=== PATIENT | female | born 1950 | race Caucasian/White ===

== ENCOUNTER 2023-07-19 08:17 | Outpatient (RCR) | payer MEDICARE, BC, SELFPAY | END 2023-07-19 23:59 | disposition home or self-care (01) | LOC: CRHB 08:17 | PROVIDERS: ATTENDING PHYSICIAN Nuclear Medicine Nuclear Cardiology | DX: I25.10 Atherosclerotic heart disease of native coronary artery without angina pectoris (principal); Z95.1 Presence of aortocoronary bypass graft | CPT/HCPCS: G0422; G0423 ==

== ENCOUNTER 2023-08-07 09:44 | Emergency (ER) | payer MEDICARE, BC, SELFPAY ==
[2023-08-07 09:55] VITALS: BP 160/78
--- NOTE | 2023-08-07 10:26 | ED.GENMED ---
History of Present Illness
General
Chief Complaint: Chest Pain
Time Seen by Provider: 08/07/23 10:07
Travel History
Have you had any contact with someone who has COVID-19?: No
Do you have any symptoms of coronavirus? Fever > 100 degrees, chills, cough, shortness of breath, sore throat, loss of taste or smell, muscle aches, or headache?: No
History of Present Illness
History of Present Illness:
73-year-old female with history of hypertension, coronary artery disease status post CABG x 4 presents to the emergency department for evaluation of right upper chest wall pain ongoing since last week. Pain was initially random but has been more
consistent over the course of today. Pain is not pleuritic and not worse with exertion. Does not feel comparable to prior angina. No associated fevers but does report occasional chills and some sensation of shortness of breath. Has been in
cardiac rehab for the past 2 to 3 weeks and feels the process is going well. Denies any nausea, vomiting, or leg swelling.
Past History
Past History
ED Past Medical History: HTN
ED Past Surgical History: None
Social History
Tobacco: Non-smoker
Living: with family
Review of Systems
Review of Systems
Allergies reviewed?: Yes
All Other Systems: ROS reviewed and negative except as documented in HPI and ROS
Phy Exam
Physical Exam
Physical Exam:
GEN: Well appearing, NAD, WDWN
Eyes: PERRLA, EOMs intact, no scleral icterus
HENT: NCAT, oral mucosa moist
Lungs: CTAB, no wheezes, rales, rhonchi, normal chest wall excursion
Chest: Midline sternotomy incision is well-healed. Patient has focal tenderness to the right upper chest wall superior and lateral to the incision site. No erythema or palpable abnormalities
Cardiac: RRR, no M/R/G, no peripheral edema. Radial pulses 2+ bilat
Neuro: AO x 3
MSK: No gross deformity or ecchymosis.
Skin: No rashes, petechiae. Normal color, no pallor or jaundice.
Psych: Calm, cooperative, proper hygiene
Scores
Heart Score for Chest Pain Patients
STEMI patient?: No
History: Slightly or Non-Suspicious
ECG: Normal
Age: >/= 65 years
Risk Factors: >/= 3 Risk Factors or History of CAD
Troponin: </= Normal Limit
Heart Score for Chest Pain Patients: 4
Heart Score Risk: 20.3% MACE over next 6 weeks
Course
Orders/Labs/Results
Orders:
Orders
08/07/23 09:48
Electrocardiogram (*1) Urgent
Reason for Study: Chest Pain
EKG- Treatment ONCE
08/07/23 10:26
CR Chest - 2 Views Urgent
Comment:
Reason For Exam: chest pain
08/07/23 10:41
Complete Blood Count/With Diff Urgent
Comprehensive Metabolic Panel Urgent
Troponin I Urgent
08/07/23 10:45
COVID-19 Antigen Urgent
Source: Nasal Swab
08/07/23 10:57
Urinalysis Reflex To Culture Urgent
Date Specimen was Collected: 08/07/23
Time Specimen was Collected: 10:49
Urine Microscopic Reflex Cult Urgent
Abnormal Lab Results
08/07/23 08/07/23
10:41 10:57
RBC 4.01 L 10^6/uL
(4.20-5.40)
MCH 31.4 H pg
(27.0-31.0)
BUN 20 H mg/dl
(7-17)
Glucose 106 H mg/dl
(70-99)
Ur Occult Blood Reflex Trace A
(Negative)
Leukocyte Esterase Rfl Trace A
(Negative)
Urine Bacteria (Reflex) Few A
(Negative)
08/07/23 10:41
08/07/23 10:41
Vital Signs
Initial and Last Documented VS:
Initial Vital Signs
Temp Pulse Resp BP Pulse Ox
97.6 F 73 18 160/78 98
08/07/23 09:55 08/07/23 09:55 08/07/23 09:55 08/07/23 09:55 08/07/23 09:55
Last Documented Vital Signs
Temp Pulse Resp BP Pulse Ox
98.6 F 77 15 146/74 93
08/07/23 10:48 08/07/23 12:00 08/07/23 12:00 08/07/23 12:00 08/07/23 12:00
MDM/Problems Addressed
MDM/Problems Addressed:
Patient's symptoms are quite pinpoint and may be reflective of chest wall soft tissue irritation in the setting of her sternotomy wires. Low clinical suspicion for cardiac ischemia. She has no pleuritic pain and no tachycardia that would be
concerning for pulmonary embolism. Patient reassured, advised to continue cardiac rehab and follow-up with her stone banker as planned
Comment
Comment:
EKG independently interpreted by me shows normal sinus rhythm at a rate of [address] changes concerning for ischemia, QTc of 428
*Critical Care Note
Total Time (30-74mins, 75-104mins- exclusive of procedures): Not Applicable
ED Attending Note
-
Portions of this chart may have been created with voice recognition software.� Occasional wrong word or��sound alike� substitutions may have occurred due to the inherent limitations of voice recognition software.
Discharge Plan
Departure
Patient Disposition: Home (Routine Discharge)
Date of Disposition: 08/07/23
Time of Disposition: 11:45
Patient with high blood pressure during this ER visit?: No
Discharge Problem:
Anterior chest wall pain
Instructions: Chest Pain That Is Not Caused by the Heart (DC)
Prescriptions:
No Action
multivitamin with folic acid [Tab-A-Cody] 1 TABLET tablet
1 tab PO DAILY
lisinopril-hydrochlorothiazide 10-12.5 mg tablet
1 tab PO HS
cholecalciferol (vitamin D3) [Vitamin D3] 25 mcg (1,000 unit) Capsule
25 mcg PO DAILY
atorvastatin 40 mg Tablet
40 mg PO HS Qty: 30 0RF
clopidogrel 75 mg Tablet
75 mg PO DAILY Qty: 30 1RF
amlodipine 5 mg Tablet
5 mg PO DAILY Qty: 30 1RF
pantoprazole 40 mg Tablet,Delayed Release (Dr/Ec)
40 mg PO DAILY Qty: 30 1RF
aspirin [Children's Aspirin] 81 mg Tablet,Chewable
81 mg PO DAILY Qty: 20 1RF
metoprolol succinate 25 mg Tablet Extended Release 24 Hr
25 mg PO DAILY Qty: 30 1RF
acetaminophen 325 mg Tablet
650 mg PO Q4HPRN PRN (Reason: mild pain,headache,temp >101F ) Qty: 0 0RF
calcium carbonate [Calcium 500] 500 mg calcium (1,250 mg) Tablet
500 mg PO DAILY
Referrals:
NONE,* [Active] -
Interventions
Interventions:
*Risk Screen - Suicide Last Done: 08/07/23 10:51
*General Assessment Last Done: 08/07/23 10:51
*Neglect/Abuse Screening Last Done: 08/07/23 10:51
*ED COVID-19 Vaccine History Last Done: 08/07/23 10:51
*Nursing Disposition Last Done: 08/07/23 12:10
ED- Cardiac Assessment Last Done: 08/07/23 11:44
Discharge Date and Time
Discharge Date/Time: 08/07/23 12:11
[2023-08-07 10:48] VITALS: BMI 38.8
[2023-08-07 11:05] LABS: % Basophils 0.4 % (0-2); % Eosinophils 2.7 % (0-6); % Immature Granulocytes 0.3 % (0-0.5); % Lymphocytes 25.9 % (20.5-51.1); % Neutrophils 63.7 % (42.2-75.2); Absolute Eosinophils 0.2 10^3/uL (0-0.7); Absolute Lymphocytes 1.9 10^3/uL (1.2-3.4); Absolute Monocytes 0.5 10^3/uL (0.1-0.6); Absolute Neutrophils 4.7 10^3/uL (1.4-6.5); Hemoglobin 12.6 g/dL (12.0-16.0); Mean Corp Hgb Conc. 33.2 g/dL (33.0-37.0); Mean Corpuscular Hgb 31.4 pg (27.0-31.0); Mean Corpuscular Volume 94.8 fL (81.0-99.0); Mean Platelet Volume 9.8 fL (7.4-10.4); Nucleated Red Blood Cells % 0 %; Platelet Count 242 10^3/uL (130-400); Red Blood Cell Count 4.01 10^6/uL (4.20-5.40); Red Cell Dist. Width 12.9 % (11.5-14.5); White Blood Cell Count 7.4 10^3/uL (4.8-10.8)
[2023-08-07 11:12] LABS: Urine Albumin Negative (Neg - Trace); Urine Bilirubin Negative (Negative); Urine Character Clear (Clear); Urine Color Yellow; Urine Glucose Negative (Negative); Urine Ketone Negative (Negative); Urine Leukocyte Trace (Negative); Urine Nitrite Negative (Negative); Urine Occult Blood Trace (Negative); Urine Urobilinogen Negative (Neg - 1+)
[2023-08-07 11:12] LABS: COVID-19 Antigen Negative (Negative)
[2023-08-07 11:17] LABS: ALT (SGPT) 21 U/L (0-35); AST (SGOT) 25 U/L (14-36); Albumin 4.2 g/dl (3.5-5.0); Alkaline Phosphatase 65 U/L (38-126); Blood Urea Nitrogen 20 mg/dl (7-17); Calcium 9.6 mg/dl (8.4-10.2); Carbon Dioxide 29 mmol/L (22-30); Chloride 103 mmol/L (98-107); Estimated Creatinine Clearance 56 ml/min; Glucose 106 mg/dl (70-99); Potassium 4.2 mmol/L (3.5-5.1); Sodium 137 mmol/L (135-145); Total Bilirubin 0.4 mg/dl (0.2-1.3); Total Protein 7.1 g/dl (6.3-8.2); eGFR > 60.00
[2023-08-07 11:23] VITALS: BP 148/70
[2023-08-07 11:28] LABS: Troponin I < 0.012 ng/ml
[2023-08-07 11:34] LABS: Urine Bacteria Few (Negative); Urine Red Blood Cell 0-2 /HPF (0-2)
[2023-08-07 12:00] VITALS: BP 146/74
== END 2023-08-07 12:11 | disposition home or self-care (01) ==
LOC: EMR 09:44
PROVIDERS: Physician Assistant; EMERGENCY PHYSICIAN Student in an Organized Health Care Education/Training Program; FAMILY PHYSICIAN Family Medicine
DX: R07.89 Other chest pain (principal); R06.02 Shortness of breath; R68.83 Chills (without fever); Z95.1 Presence of aortocoronary bypass graft; Z11.52 Encounter for screening for COVID-19
CPT/HCPCS: 99285; 71046; 80053; 81003; 81015; 84484; 85025; 87811; 93005

== ENCOUNTER 2023-08-16 11:21 | Outpatient (RCR) | payer MEDICARE, BC, SELFPAY | END 2023-08-16 23:59 | disposition home or self-care (01) | LOC: CRHB 11:21 | PROVIDERS: ATTENDING PHYSICIAN Nuclear Medicine Nuclear Cardiology | DX: Z95.1 Presence of aortocoronary bypass graft (principal) | CPT/HCPCS: G0422; G0423 ==

== ENCOUNTER 2023-09-18 10:04 | Outpatient (RCR) | payer MEDICARE, BC, SELFPAY | END 2023-09-18 23:59 | disposition home or self-care (01) | LOC: CRHB 10:04 | PROVIDERS: ATTENDING PHYSICIAN Nuclear Medicine Nuclear Cardiology; FAMILY PHYSICIAN Family Medicine | DX: I25.110 Atherosclerotic heart disease of native coronary artery with unstable angina pectoris (principal); I21.4 Non-ST elevation (NSTEMI) myocardial infarction; Z95.1 Presence of aortocoronary bypass graft | CPT/HCPCS: G0422; G0423 ==

== ENCOUNTER 2023-10-12 09:44 | Outpatient (RCR) | payer MEDICARE, BC, SELFPAY ==
[2023-10-20 09:08] LABS: HDL Cholesterol 63 mg/dl; LDL Cholesterol, Calculated 41 mg/dl; Total Cholesterol 129 mg/dl (50-199); Triglyceride 128 mg/dl (10-149); Very Low Density Lipoprotein 25 mg/dl (0-30)
== END 2023-10-12 23:59 | disposition home or self-care (01) ==
LOC: REG 09:44
PROVIDERS: ATTENDING PHYSICIAN Nuclear Medicine Nuclear Cardiology; FAMILY PHYSICIAN Family Medicine
DX: I25.10 Atherosclerotic heart disease of native coronary artery without angina pectoris (principal); Z95.1 Presence of aortocoronary bypass graft; I10 Essential (primary) hypertension
CPT/HCPCS: 36415; 80061; G0422; G0423

== ENCOUNTER 2023-10-27 10:13 | Outpatient (RCR) | payer MEDICARE, BC, SELFPAY | END 2023-10-27 23:59 | disposition home or self-care (01) | LOC: CRHB 10:13 | PROVIDERS: ATTENDING PHYSICIAN Nuclear Medicine Nuclear Cardiology; FAMILY PHYSICIAN Family Medicine | DX: I25.10 Atherosclerotic heart disease of native coronary artery without angina pectoris (principal); Z95.1 Presence of aortocoronary bypass graft | CPT/HCPCS: G0422; G0423 ==

== ENCOUNTER → 2024-05-30 11:50 | Outpatient (REF) | payer MEDICARE, BC, SELFPAY | LOC: HWWDC 11:50 | PROVIDERS: ATTENDING PHYSICIAN Obstetrics & Gynecology Gynecology; FAMILY PHYSICIAN Family Medicine | DX: Z12.31 Encounter for screening mammogram for malignant neoplasm of breast (principal) | CPT/HCPCS: 77063; 77067; 93306 ==